=== PATIENT | male | born 1995 | race Caucasian/White ===

== ENCOUNTER 2020-10-19 19:59 | Emergency (ER) | payer OTHER ==
[~2020-10-19] VITALS: Ht 182.8 cm; Wt 95.3 kg
[2020-10-19] MEDS ORDERED: morphine INJ 10 MG/ML 1ML (SYR OR VIAL) IM STA (20:30)
[2020-10-19] MEDS ORDERED: ONDANSETRON 4 MG (ZOFRAN) ORAL DISSOLVE TAB PO STA (20:30)
[2020-10-19] MEDS ORDERED: LIDOCAINE 1% INJ 20 ML 20 ML VIAL INJ STA (20:30)
--- NOTE | 2020-10-19 20:38 | ED General ---
General Chief Complaint: Head/Cervical Problems Stated Complaint: HEAD INJURY Source of Information: Patient History of Present Illness Date Seen by Provider: October 19, 2020 Time Seen by Provider: 20:02 Initial Comments 25 yo male presenting with left face/orbit injury and left arm abrasions. He was playing [employer]iff[employer] ball with kids and went to get a fly ball. He was not looking and ran into a tree. He denies loss of consciousness. he has contusion and abrasions to left arm, face and left upper eyelid with laceration. He states his last tetanus was within last 5 years. He has no difficulty with vision or eye movement but does have pain to area around left eye and cheek. He reports drinking a few beers earlier in the day. Timing/Duration: 1 Hour Severity: Moderate Modifying Factors: worse with Movement Associated Systoms: No Chest Pain, No Cough, No Diaphoresis, No Fever/Chills; Headaches (left sided where he has injury); No Malaise, No Nausea/Vomiting, No Seizure, No Shortness of Air, No Syncope, No Weakness Allergies and Home Medications Allergies Coded Allergies: No Known Drug Allergies (Unverified , 10/19/20) Home Medications Hydrocodone/Acetaminophen 1 Each Tablet, 1 TAB PO Q6H PRN for PAIN-SEVERE (8-10) Prescribed by: BERE SNYDER on 10/19/202154 Ibuprofen 800 Mg Tablet, 800 MG PO Q8H PRN for PAIN Prescribed by: BERE SNYDER on 10/19/202153 Patient Home Medication List Home Medication List Reviewed: Yes Review of Systems Review of Systems Constitutional: No chills, No dizziness, No fever EENTM: see HPI; No ear discharge, No ear pain, No blurred vision, No double vision, No vision loss, No mouth pain, No epistaxis Respiratory: no symptoms reported Cardiovascular: no symptoms reported Gastrointestinal: No nausea, No vomiting Genitourinary: no symptoms reported Musculoskeletal: other (left arm pain where he has contusions and abrasions) Skin: other (multiple abrasions/contusions to left arm. contusion/abrasions to left face and laceration to left upper eyelid) Psychiatric/Neurological: Headache (left side where he has contusion and la ceration to eyelid) Past Dqcfloy-Pbsgkn-Rgfffo Hx Past Med/Social Hx: Reviewed Nursing Past Med/Soc Hx Past Medical History Surgeries: No Respiratory: No Cardiac: No Neurological: No Genitourinary: No Gastrointestinal: No Musculoskeletal: No Endocrine: No HEENT: No Psychosocial: No Physical Exam Vital Signs Vital Signs - First Documented 10/19/20 20:24 Temp 36.6 Pulse 62 Resp 14 B/P (MAP) 121/77 (92) O2 Delivery Room Air Capillary Refill : Less Than 3 Seconds Height, Weight, BMI Height: '" Weight: lbs. oz. kg; BMI Method: General Appearance: WD/WN HEENT: PERRL/EOMI, TMs Normal (negative hemotympanum. no CSF otorrhea), Pharynx Normal, Moist Mucous Membranes; No Photophobia; Other (swelling with contusion and abrasion to left periorbital area, cheek and left upper eyelid has 1.6 cm laceration) Neck: Full Range of Motion, Normal Inspection, Non Tender, Supple Respiratory: Chest Non Tender, Lungs Clear, Normal Breath Sounds, No Accessory Muscle Use, No Respiratory Distress Cardiovascular: Regular Rate, Rhythm, Normal Peripheral Pulses Gastrointestinal: No Pulsatile Mass, Non Tender, Soft Extremity: Normal Capillary Refill, Normal Range of Motion, No Pedal Edema, Other (mild swelling and contusion with abrasions to left arm from shoulder down to forearm) Neurologic/Psychiatric: Alert, Oriented x3, No Motor/Sensory Deficits, Normal Mood/Affect, 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 Then the wound was cleaned with betadine solution and sterile water. 6 stitches with 5-0 Ethilon were placed in simple interrupted fashion. The wound edges were well approximated. Patient tolerated procedure well without any immediate complications. Counseled on follow up and return precautions. Stitch removal in 5-7 days. Progress/Results/Core Measures Suspected Sepsis SIRS Temperature: Pulse: 62 Respiratory Rate: 14 Blood Pressure 121 /77 Mean: 92 Results/Orders My Orders Orders - BERE SNYDER MD Morphine Injection (Morphine Injection (10/19/20 20:30) Ondansetron Oral Dissolve Tab (Zofran (10/19/20 20:30) Lidocaine 1% Inj 20 Ml (Xylocaine 1% Inj (10/19/20 20:30) Ice: Apply To Affected Area (10/19/20 20:31) Head Of Bed Q4H (10/19/20 20:31) Ct Head/Maxillofacial Wo (10/19/20 20:31) Wound Dressing-Ed (10/19/20 21:55) Rx-Hydrocodone/Apap 5-325 Mg (Rx-Vicodin (10/19/20 22:00) Vital Signs/I&O 10/19/20 20:24 Temp 36.6 Pulse 62 Resp 14 B/P (MAP) 121/77 (92) O2 Delivery Room Air Capillary Refill : Less Than 3 Seconds Progress Note #1: Progress Note check CT head and face. Morphine 4 mg IM for pain, Zofran 4 mg ODT to help try and prevent n/v from Morphine, Lidocaine to numb laceration to repair the wound. He states tetanus is up to date. Normal range of motion of the LUE so no imaging indicated. Differential diagnosis orbital fracture, intracranial hemorrhage, skull fracture, facial fracture, multiple contusions/abrasions Progress Note #2: Progress Note no acute fracture or intracranial hemorrhage. Laceration repaired with stitches. Pt tolerated procedure well without difficulty. Send with script for ibuprofen and hydrocodone and a take home pack of hydrocodone. Counseled on follow up and return precautions. Diagnostic Imaging Diagonstic Imaging: CT Plain Films/CT/US/NM/MRI: facial bones, head Comments NAME: ALBARO SU MED REC#: [id number] PT STATUS: REG ER : 1995 PHYSICIAN: BERE SNYDER MD ADMIT DATE: 10/19/20/ER FS Draft Date of Exam:10/19/20 CT HEAD/MAXILLOFACIAL WO PROCEDURE: CT head and maxillofacial without contrast. TECHNIQUE: Multiple contiguous axial images were obtained through the head and facial bones without the use of intravenous contrast. Auto Exposure Controls were utilized during the CT exam to meet ALARA standards for radiation dose reduction. INDICATION: Head and face trauma. FINDINGS: The ventricles and sulci are within normal limits. There is no hydrocephalus. There is no midline shift. There is no mass, hemorrhage or extra-axial fluid collection. The calvarium is intact. The sinuses and mastoid air cells are clear. The zygomatic arches are intact. The pterygoid plates are intact. The mandibular alignment is normal. The lamina papyracea and orbital floors are intact. IMPRESSION: 1. No acute intracranial abnormality 2. No displaced facial fracture. Dictated on workstation # [id number] Dict: 10/19/202058 Trans: 10/19/202112 [facility] [id number] Interpreted by: JANNETTE DOWD MD Electronically signed by: Reviewed: Reviewed by Me Departure Impression Primary Impression: Left eyelid laceration Qualified Codes: S01.112A - Laceration without foreign body of left eyelid and periocular area, initial encounter Additional Impressions: Contusion, eyelid, left Qualified Codes: S00.12XA - Contusion of left eyelid and periocular area, initial encounter Contusion of face Qualified Codes: S00.83XA - Contusion of other part of head, initial encounter Abrasion of left arm Qualified Codes: S40.812A - Abrasion of left upper arm, initial encounter Contusion of left arm Qualified Codes: S40.022A - Contusion of left upper arm, initial encounter Closed head injury without loss of consciousness Qualified Codes: S09.90XA - Unspecified injury of head, initial encounter Disposition: 01 HOME, SELF-CARE Condition: Stable Departure-Patient Inst. Decision time for Depature: 21:53 Referrals: NO,LOCAL PHYSICIAN (PCP/Family) Primary Care Physician Patient Instructions: Minor Head Injury, Adult ED, Black Eye ED, Laceration Repair With Stitches ED, Minor Contusion ED, Abrasions ED Add. Discharge Instructions: Keep wounds clean and keep the eyelid laceration dry for first 24 hours. Then you may wash your face and the eyelid wound with soap and water like normal but no soaking the wound. Ice 20-30 minutes every few hours to help with pain and swelling of the eyelid and face. Keep your head elevated at least 30-45 degrees for next few nights when sleeping to help limit swelling. If you lay flat or have your head down it will swell up more and might make the stitches pop open. May use Ibuprofen for pain and inflammation. For severe pain you could use Hydrocodone/Acetaminophen. Check back with clinic for continued problems/concerns. The 6 stitches placed in left upper eyelid could be removed in 5-7 days All discharge instructions reviewed with patient and/or family. Voiced understanding. Scripts Hydrocodone/Acetaminophen (Hydrocodone-Acetamin 5-325 mg) 1 Each Tablet 1 TAB PO Q6H PRN for PAIN-SEVERE (8-10) for 3 Days, #12 TAB 0 Refills Prov: BERE SNYDER MD 10/19/20 Ibuprofen (Ibuprofen) 800 Mg Tablet 800 MG PO Q8H PRN for PAIN for 10 Days, #30 TAB 0 Refills Prov: BERE SNYDER MD 10/19/20 Images Extremities-Upper 1 - Abrasion (multiple superficial abrasions and contusion to left arm from shoulder to forearm), Contusion Head/Face 1 - Abrasion, Contusion, Laceration (1.6 cm laceration to left upper lateral eyelid), Swelling, Tenderness BERE SNYDER MD October 19, 2020 20:38
--- NOTE | 2020-10-19 21:14 | Diagnostic Imaging Report ---
PROCEDURE: CT head and maxillofacial without contrast. TECHNIQUE: Multiple contiguous axial images were obtained through the head and facial bones without the use of intravenous contrast. Auto Exposure Controls were utilized during the CT exam to meet ALARA standards for radiation dose reduction. INDICATION: Head and face trauma. FINDINGS: The ventricles and sulci are within normal limits. There is no hydrocephalus. There is no midline shift. There is no mass, hemorrhage or extra-axial fluid collection. The calvarium is intact. The sinuses and mastoid air cells are clear. The zygomatic arches are intact. The pterygoid plates are intact. The mandibular alignment is normal. The lamina papyracea and orbital floors are intact. IMPRESSION: 1. No acute intracranial abnormality 2. No displaced facial fracture. Dictated by: Dictated on workstation # [id number]
[2020-10-19] MEDS ORDERED: IBUP-1780 PO (21:54)
[2020-10-19] MEDS ORDERED: ACHD5005 PO (21:54)
[2020-10-19 22:09] VITALS: BP 117/73
== END 2020-10-19 22:09 | disposition home or self-care (01) ==
LOC: ER FS 20:03
DX: S09.90XA Unspecified injury of head, initial encounter (principal); S01.112A Laceration without foreign body of left eyelid and periocular area, initial encounter; S40.022A Contusion of left upper arm, initial encounter; W22.8XXA Striking against or struck by other objects, initial encounter
CPT/HCPCS: 70450; 70486